=== PATIENT | male | born 1990 | race Caucasian/White ===

== ENCOUNTER 2017-10-21 03:05 | Emergency (ER) | payer BC ==
[~2017-10-21] VITALS: Ht 180.3 cm; Wt 99.8 kg
[~2017-10-21 03:05] MED LIST: AMOXICILLIN500 MG PO; AMOXIL500 M1 PO; MOTRIN800 MG PO; NKHM; PREDNISONE10 MG PO; ROBAXIN750 MG PO; TYLENOL W/CODEI1 TA2 PO; TYLENOL WITH CO1 TAB PO; VICODIN 5/500 505 MG PO; VOLTAREN50 M1 PO; ZOFRAN ODT4 MG SL
== END 2017-10-21 04:22 | disposition home or self-care (01) ==
LOC: ED 03:05
DX: S46.911A Strain of unspecified muscle, fascia and tendon at shoulder and upper arm level, right arm, initial encounter (principal); X50.0XXA Overexertion from strenuous movement or load, initial encounter; Y93.43 Activity, gymnastics; Y92.89 Other specified places as the place of occurrence of the external cause; Y99.8 Other external cause status

== ENCOUNTER 2018-07-22 16:23 | Emergency (ER) | payer SELFPAY ==
[~2018-07-22] VITALS: Ht 180.3 cm; Wt 104.3 kg
== END 2018-07-22 17:40 | disposition home or self-care (01) ==
LOC: ED 16:23
DX: S61.411A Laceration without foreign body of right hand, initial encounter (principal); W45.8XXA Other foreign body or object entering through skin, initial encounter; Y93.89 Activity, other specified; Y92.89 Other specified places as the place of occurrence of the external cause; Y99.0 Civilian activity done for income or pay

== ENCOUNTER 2020-06-28 20:29 | Emergency (ER) | payer SELFPAY ==
[~2020-06-28] VITALS: Ht 182.8 cm; Wt 120.2 kg
[2020-06-28] MEDS ORDERED: SEPTDS PO (21:38)
== END 2020-06-28 21:58 | disposition home or self-care (01) ==
LOC: ED 20:29
DX: S61.011A Laceration without foreign body of right thumb without damage to nail, initial encounter (principal); L03.011 Cellulitis of right finger; X58.XXXA Exposure to other specified factors, initial encounter; Y93.89 Activity, other specified; Y92.89 Other specified places as the place of occurrence of the external cause; Y99.8 Other external cause status

== ENCOUNTER 2020-07-07 13:16 | Emergency (ER) | payer SELFPAY ==
[~2020-07-07] VITALS: Ht 182.8 cm; Wt 115.7 kg
[~2020-07-07 13:16] MED LIST changes: +SEPTDS PO
== END 2020-07-07 15:13 | disposition home or self-care (01) ==
LOC: ED 13:16
DX: S60.351A Superficial foreign body of right thumb, initial encounter (principal); R60.0 Localized edema; Z79.899 Other long term (current) drug therapy; X58.XXXA Exposure to other specified factors, initial encounter; Y93.89 Activity, other specified; Y92.89 Other specified places as the place of occurrence of the external cause; Y99.8 Other external cause status

== ENCOUNTER 2022-05-07 20:03 | Emergency (ER) | payer OTHER ==
[~2022-05-07] VITALS: Ht 180.3 cm; Wt 90.7 kg
[2022-05-07] MEDS ORDERED: METHOCARBAMOL500 M1 PO (21:07)
== END 2022-05-07 21:16 | disposition home or self-care (01) ==
LOC: ED 20:03
DX: S46.912A Strain of unspecified muscle, fascia and tendon at shoulder and upper arm level, left arm, initial encounter (principal); V89.9XXA Person injured in unspecified vehicle accident, initial encounter; Y93.89 Activity, other specified; Y92.410 Unspecified street and highway as the place of occurrence of the external cause; Y99.8 Other external cause status